=== PATIENT | female | born 1950 | race Caucasian/White ===

== ENCOUNTER 2016-11-23 16:55 | Emergency (ER) | payer SELFPAY ==
[~2016-11-23 16:55] MED LIST: BACTRIM DS TAB1 EACH PO; CLONIDINE 0.3M0.3 MG PO; COZAAR50 MG PO; JANUVIA50 MG PO; LASIX20 MG PO; NORCO 5-325 TA1 EACH PO; VANCOMYCIN1000 MG IV
== END 2016-11-23 19:22 | disposition home or self-care (01) ==
LOC: FER 16:55
DX: S09.90XA Unspecified injury of head, initial encounter (principal); S50.02XA Contusion of left elbow, initial encounter; S60.212A Contusion of left wrist, initial encounter; S00.31XA Abrasion of nose, initial encounter; I10 Essential (primary) hypertension; E11.9 Type 2 diabetes mellitus without complications; E03.9 Hypothyroidism, unspecified; F17.210 Nicotine dependence, cigarettes, uncomplicated; Z90.89 Acquired absence of other organs; Z85.42 Personal history of malignant neoplasm of other parts of uterus; Z88.5 Allergy status to narcotic agent; Z88.0 Allergy status to penicillin; Z91.013 Allergy to seafood; Z91.011 Allergy to milk products; Z79.899 Other long term (current) drug therapy; W01.0XXA Fall on same level from slipping, tripping and stumbling without subsequent striking against object, initial encounter; Y99.0 Civilian activity done for income or pay
CPT/HCPCS: 70450; 73080; 73110

== ENCOUNTER 2021-05-29 10:11 | Emergency (ER) | payer MEDICARE, OTHER ==
[~2021-05-29 10:11] MED LIST changes: +KEFLEX500 MG PO; +METFORMIN HCL500 MG PO; +VITAMIN B122500 MCG PO; +VITAMIN D31000 UNI1 PO
[2021-05-29 10:49] LABS: BASOPHIL 0.9 % (0-2); EOSINOPHIL 2.8 % (0-7); HCT 23.9 % (37.0-47.0); HGB 6.8 g/dl (12.5-16.0); LYMPHOCYTE 14.5 % (15-48); MCH 24.2 pg (25.0-31.0); MCHC 28.5 g/dL (32.0-36.0); MCV 85.1 fL (78.0-100.0); MONOCYTE 10.1 % (0-12); MPV 9.6 fL (6.0-9.5); NEUTROPHIL 71.4 % (41-80); NRBC 0; PLT 129 K/uL (150-400); RBC 2.81 M/uL (4.20-5.40); RDW 18.2 % (11.5-14.0); WBC 5.7 K/uL (4.0-10.5)
[2021-05-29 11:18] LABS: BILIRUBIN - TOTAL 0.8 mg/dL (0.2-1.0); BUN/CREAT RATIO (CALC) 17.4 RATIO; CREATININE 2.65 mg/dL (0.51-0.95); GLOBULIN (CALCULATION) 3.3 g/dL; POTASSIUM 6.3 mmol/L (3.5-5.1); TOTAL PROTEIN 6.3 g/dL (6.4-8.2)
[2021-05-29 12:13] LABS: INR 1.35 (0.9-1.2); PTT 36.7 SECONDS (24.4-34.7)
[2021-05-29 16:45] LABS: BASOPHIL 0.5 % (0-2); EOSINOPHIL 1.6 % (0-7); HCT 27.6 % (37.0-47.0); HGB 8.3 g/dl (12.5-16.0); MCH 25.5 pg (25.0-31.0); MCHC 30.1 g/dL (32.0-36.0); MCV 84.9 fL (78.0-100.0); MONOCYTE 9.4 % (0-12); MPV 9.3 fL (6.0-9.5); NEUTROPHIL 77.2 % (41-80); NRBC 0; PLT 113 K/uL (150-400); RBC 3.25 M/uL (4.20-5.40); RDW 17.7 % (11.5-14.0); WBC 6.1 K/uL (4.0-10.5)
[2021-05-29 17:00] LABS: BUN/CREAT RATIO (CALC) 16.2 RATIO; CREATININE 2.84 mg/dL (0.51-0.95); POTASSIUM 6.4 mmol/L (3.5-5.1)
[2021-05-29 17:58] LABS: BILIRUBIN NEGATIVE (NEGATIVE); BLOOD NEGATIVE Ery/uL (NEGATIVE); CLARITY CLEAR (CLEAR); COLOR YELLOW (YELLOW); GLUCOSE (U) NORMAL (NORMAL); LEUKOCYTES NEGATIVE Leu/uL (NEGATIVE); NITRITE NEGATIVE (NEGATIVE); PROTEIN TRACE (LOW) mg/dL (NEGATIVE); SPECIFIC GRAVITY >=1.030 (1.001-1.030); UROBILINOGEN 0.2 mg/dL (0.2-1.0); pH 5.5 (5.0-9.0)
[2021-05-29 21:38] LABS: BUN/CREAT RATIO (CALC) 16.7 RATIO; CREATININE 2.94 mg/dL (0.51-0.95); POTASSIUM 5.6 mmol/L (3.5-5.1)
[2021-05-30 04:58] LABS: HCT 31.9 % (37.0-47.0); HGB 9.7 g/dl (12.5-16.0); MCH 25.2 pg (25.0-31.0); MCHC 30.4 g/dL (32.0-36.0); MCV 82.9 fL (78.0-100.0); MPV 8.9 fL (6.0-9.5); RBC 3.85 M/uL (4.20-5.40); RDW 17.2 % (11.5-14.0); WBC 5.7 K/uL (4.0-10.5)
[2021-05-30 05:14] LABS: CREATININE 3.19 mg/dL (0.51-0.95); POTASSIUM 6.2 mmol/L (3.5-5.1)
== END 2021-05-30 10:19 | disposition other institution (70) ==
LOC: FER 10:11
PROVIDERS: Emergency Medicine
DX: J96.91 Respiratory failure, unspecified with hypoxia (principal); N19 Unspecified kidney failure; D64.9 Anemia, unspecified; J90 Pleural effusion, not elsewhere classified; K74.60 Unspecified cirrhosis of liver; R16.1 Splenomegaly, not elsewhere classified; I10 Essential (primary) hypertension; E11.9 Type 2 diabetes mellitus without complications; F17.210 Nicotine dependence, cigarettes, uncomplicated; Z88.0 Allergy status to penicillin; Z91.040 Latex allergy status; Z20.822 Contact with and (suspected) exposure to COVID-19
CPT/HCPCS: 36415; 36430; 36600; 71045; 71046; 80048; 80053; 81003; 82803; 83690; 83880; 84443; 84484; 85025; 85610; 85730; 86850; 86900; 86901; 86922; 93005; C9113; J0610; J1200; J1940; J2270; J2405; J2930; J7030; J7050; P9016; U0002

== ENCOUNTER 2021-07-08 10:01 | Inpatient (IN) | payer MEDICARE, OTHER ==
[2021-07-08 10:52] LABS: BASOPHIL 0.6 % (0-2); EOSINOPHIL 1.1 % (0-7); HCT 33.6 % (37.0-47.0); HGB 11.2 g/dl (12.5-16.0); LYMPHOCYTE 15.8 % (15-48); MCH 28.7 pg (25.0-31.0); MCHC 33.3 g/dL (32.0-36.0); MCV 86.2 fL (78.0-100.0); MONOCYTE 10.2 % (0-12); MPV 10.4 fL (6.0-9.5); NEUTROPHIL 71.9 % (41-80); NRBC 0; RDW 21.4 % (11.5-14.0); WBC 5.3 K/uL (4.0-10.5)
[2021-07-08 10:56] LABS: BILIRUBIN NEGATIVE (NEGATIVE); BLOOD NEGATIVE Ery/uL (NEGATIVE); CLARITY CLEAR (CLEAR); COLOR YELLOW (YELLOW); GLUCOSE (U) NORMAL (NORMAL); LEUKOCYTES NEGATIVE Leu/uL (NEGATIVE); NITRITE NEGATIVE (NEGATIVE); PROTEIN NEGATIVE (NEGATIVE); UROBILINOGEN 0.2 mg/dL (0.2-1.0); pH 6.5 (5.0-9.0)
[2021-07-08 11:02] LABS: ALBUMIN 3.7 g/dL (3.4-5.0); BILIRUBIN - TOTAL 1.2 mg/dL (0.2-1.0); BUN/CREAT RATIO (CALC) 22.6 RATIO; CREATININE 2.35 mg/dL (0.51-0.95); TOTAL PROTEIN 7.7 g/dL (6.4-8.2)
[2021-07-08 11:08] LABS: LACTIC ACID 2.1 mmol/L (0.4-1.9)
[2021-07-08 11:25] LABS: PLT 97 K/uL (150-400)
[2021-07-08] MEDS ORDERED: HUMALOG100 UNIT/1 SC (20:10)
[2021-07-08] MEDS ORDERED: LEVEMIR VI100 UNITS/ SC (20:11)
[2021-07-08] MEDS ORDERED: LASIX40 MG PO (20:11)
[2021-07-08] MEDS ORDERED: LEVAQUIN500 MG PO (20:12)
[2021-07-08] MEDS ORDERED: COZAAR50 MG PO (20:13)
[2021-07-08] MEDS ORDERED: MELATONIN5 M2 PO (20:14)
[2021-07-08] MEDS ORDERED: MIRALAX17 GM PO (20:16)
[2021-07-08] MEDS ORDERED: NORVASC5 MG PO (20:17)
[2021-07-08] MEDS ORDERED: PRILOSEC20 MG PO (20:18)
[2021-07-08] MEDS ORDERED: MYCOLOG15 GM TOP (20:18)
[2021-07-08] MEDS ORDERED: KLOR-CON M2020 MEQ PO (20:20)
[2021-07-08] MEDS ORDERED: KLOR-CON M 1010 MEQ PO (20:22)
[2021-07-08] MEDS ORDERED: ALDACTONE50 MG PO (20:22)
[2021-07-08] MEDS ORDERED: FLOMAX0.4 MG PO (20:23)
[2021-07-08] MEDS ORDERED: TRAMADOL HCL50 MG PO (20:24)
[2021-07-08] MEDS ORDERED: VITAMIN B-121000 MC1 SL (20:24)
[2021-07-08] MEDS ORDERED: BIOFREEZE89 ML TOP (20:25)
[2021-07-08] MEDS ORDERED: CLONIDINE 0.3M0.3 MG PO (20:27)
[2021-07-08] MEDS ORDERED: CALMOSEPTINE O3.5 GM TOP (20:27)
[2021-07-08] MEDS ORDERED: COLACE100 MG PO (20:28)
[2021-07-08] MEDS ORDERED: VITAMIN B-121000 MC1 PO (20:28)
[2021-07-08] MEDS ORDERED: FLORASTOR250 MG PO (20:29)
[2021-07-08] MEDS ORDERED: FEOSOL325 MG PO (20:29)
[2021-07-09 08:54] LABS: BASOPHIL 0.6 % (0-2); EOSINOPHIL 0.6 % (0-7); HCT 37.4 % (37.0-47.0); LYMPHOCYTE 13.7 % (15-48); MCH 28.8 pg (25.0-31.0); MCHC 32.1 g/dL (32.0-36.0); MCV 89.7 fL (78.0-100.0); MONOCYTE 6.9 % (0-12); MPV 9.8 fL (6.0-9.5); NEUTROPHIL 77.7 % (41-80); NRBC 0; PLT 99 K/uL (150-400); RBC 4.17 M/uL (4.20-5.40); RDW 21.5 % (11.5-14.0); WBC 6.6 K/uL (4.0-10.5)
[2021-07-09 09:07] LABS: INR 1.39 (0.9-1.2); PROTHROMBIN TIME 16.4 SECONDS (11.8-13.4)
[2021-07-09 10:21] LABS: IRON % SATURATION 25.1 %SAT (20-50)
[2021-07-09 11:27] LABS: ALBUMIN 3.6 g/dL (3.4-5.0); BILIRUBIN - TOTAL 1.1 mg/dL (0.2-1.0); BUN/CREAT RATIO (CALC) 22.7 RATIO; CREATININE 2.33 mg/dL (0.51-0.95); GLOBULIN (CALCULATION) 4.6 g/dL; POTASSIUM 4.7 mmol/L (3.5-5.1); TOTAL PROTEIN 8.2 g/dL (6.4-8.2)
[2021-07-10 04:10] LABS: BASOPHIL 0.4 % (0-2); EOSINOPHIL 1.8 % (0-7); HCT 30.5 % (37.0-47.0); HGB 9.9 g/dl (12.5-16.0); MCH 28.5 pg (25.0-31.0); MCHC 32.5 g/dL (32.0-36.0); MCV 87.9 fL (78.0-100.0); MONOCYTE 11.8 % (0-12); MPV 9.4 fL (6.0-9.5); NEUTROPHIL 64.6 % (41-80); NRBC 0; RBC 3.47 M/uL (4.20-5.40); RDW 20.8 % (11.5-14.0); WBC 2.7 K/uL (4.0-10.5)
[2021-07-10 04:24] LABS: BUN/CREAT RATIO (CALC) 22.8 RATIO; CREATININE 1.62 mg/dL (0.51-0.95); POTASSIUM 3.8 mmol/L (3.5-5.1)
[2021-07-10 04:49] LABS: PLT 73 K/uL (150-400)
--- NOTE | 2021-07-10 14:50 | NUR ---
PER [facility] WITH [facility], PT MAY RETURN TO THEIR FACILITY. PLEASE CONTACT [facility] AAT [phone] FOR REPORT AND FAX D/C SUMMARY TO [phone].
[2021-07-11 05:41] LABS: BASOPHIL 0.2 % (0-2); EOSINOPHIL 0.4 % (0-7); HCT 28.2 % (37.0-47.0); HGB 9.3 g/dl (12.5-16.0); LYMPHOCYTE 11.3 % (15-48); MCH 28.7 pg (25.0-31.0); MONOCYTE 7.6 % (0-12); MPV 9.9 fL (6.0-9.5); NEUTROPHIL 80.1 % (41-80); NRBC 0; RBC 3.24 M/uL (4.20-5.40); WBC 4.6 K/uL (4.0-10.5)
[2021-07-11 06:00] LABS: PLT 74 K/uL (150-400)
[2021-07-11 06:26] LABS: BUN/CREAT RATIO (CALC) 21.8 RATIO; CREATININE 1.1 mg/dL (0.51-0.95); POTASSIUM 3.9 mmol/L (3.5-5.1)
[2021-07-11] MEDS ORDERED: LACTULOSE10 G/15 ML PO (08:14)
[2021-07-11] MEDS ORDERED: SODIUM BICARBO650 M1 PO (08:14)
[2021-07-11 15:11] LABS: CALCIUM, SERUM 9.8 mg/dL (8.7-10.3); PTH, INTACT 42 pg/mL (15-65)
== END 2021-07-11 10:33 | DRG 441 ==
LOC: FER 10:01 → FMS 12:30
PROVIDERS: Emergency Medicine; ADMIT Family Medicine
DX: K72.90 Hepatic failure, unspecified without coma (principal); G93.41 Metabolic encephalopathy; N17.9 Acute kidney failure, unspecified; N39.0 Urinary tract infection, site not specified; D61.818 Other pancytopenia; I10 Essential (primary) hypertension; Z20.822 Contact with and (suspected) exposure to COVID-19; E11.9 Type 2 diabetes mellitus without complications; E86.0 Dehydration; E83.52 Hypercalcemia; R79.89 Other specified abnormal findings of blood chemistry; K74.60 Unspecified cirrhosis of liver; D64.9 Anemia, unspecified; M10.9 Gout, unspecified; E03.9 Hypothyroidism, unspecified; Z88.0 Allergy status to penicillin; Z91.011 Allergy to milk products; Z88.6 Allergy status to analgesic agent; Z91.040 Latex allergy status; Z88.8 Allergy status to other drugs, medicaments and biological substances; Z88.5 Allergy status to narcotic agent; Z85.42 Personal history of malignant neoplasm of other parts of uterus; Z79.899 Other long term (current) drug therapy; Z90.710 Acquired absence of both cervix and uterus; Z79.84 Long term (current) use of oral hypoglycemic drugs
CPT/HCPCS: 36415; 36600; 70450; 70551; 71045; 80048; 80053; 81003; 82140; 82310; 82607; 82803; 83036; 83540; 83550; 83605; 83970; 84145; 84443; 85025; 85610; 87040; 87088; 87449; 94010; 97162; 97166; 97530-GP; 97535; G0378; J0696; J1642; J2405; J7030; U0002

== ENCOUNTER 2021-07-21 10:29 | Emergency (ER) | payer MEDICARE, OTHER ==
[~2021-07-21 10:29] MED LIST changes: +ALDACTONE50 MG PO; +BIOFREEZE89 ML TOP; +CALMOSEPTINE O3.5 GM TOP; +COLACE100 MG PO; +FEOSOL325 MG PO; +FLOMAX0.4 MG PO; +FLORASTOR250 MG PO; +HUMALOG100 UNIT/1 SC; +KLOR-CON M 1010 MEQ PO; +KLOR-CON M2020 MEQ PO; +LACTULOSE10 G/15 ML PO; +LASIX40 MG PO; +LEVAQUIN500 MG PO; +LEVEMIR VI100 UNITS/ SC; +MELATONIN5 M2 PO; +MIRALAX17 GM PO; +MYCOLOG15 GM TOP; +NORVASC5 MG PO; +PRILOSEC20 MG PO; +SODIUM BICARBO650 M1 PO; +TRAMADOL HCL50 MG PO; +VITAMIN B-121000 MC1 PO; +VITAMIN B-121000 MC1 SL
[2021-07-21 11:14] LABS: BASOPHIL 0.2 % (0-2); EOSINOPHIL 0.6 % (0-7); HCT 25.4 % (37.0-47.0); HGB 8.6 g/dl (12.5-16.0); LYMPHOCYTE 6.4 % (15-48); MCH 30.3 pg (25.0-31.0); MCHC 33.9 g/dL (32.0-36.0); MCV 89.4 fL (78.0-100.0); MPV 10.1 fL (6.0-9.5); NEUTROPHIL 85.2 % (41-80); NRBC 0; PLT 79 K/uL (150-400); RBC 2.84 M/uL (4.20-5.40); RDW 18.6 % (11.5-14.0); WBC 4.9 K/uL (4.0-10.5)
[2021-07-21 11:23] LABS: BUN/CREAT RATIO (CALC) 28.5 RATIO; CREATININE 1.23 mg/dL (0.51-0.95); POTASSIUM 5.6 mmol/L (3.5-5.1)
[2021-07-21 11:28] LABS: BILIRUBIN NEGATIVE (NEGATIVE); BLOOD NEGATIVE Ery/uL (NEGATIVE); CLARITY CLEAR (CLEAR); COLOR YELLOW (YELLOW); GLUCOSE (U) NORMAL (NORMAL); LEUKOCYTES NEGATIVE Leu/uL (NEGATIVE); NITRITE NEGATIVE (NEGATIVE); PROTEIN NEGATIVE (NEGATIVE); SPECIFIC GRAVITY <=1.005 (1.001-1.030)
[2021-07-21 14:46] LABS: ALBUMIN 3.3 g/dL (3.4-5.0); BILIRUBIN - DIRECT 0.1 mg/dL (0.00-0.20); BILIRUBIN - TOTAL 0.6 mg/dL (0.2-1.0); GLOBULIN (CALCULATION) 3.7 g/dL
== END 2021-07-21 18:15 | disposition home or self-care (01) ==
LOC: FER 10:29
PROVIDERS: Emergency Medicine
DX: I95.89 Other hypotension (principal); F03.90 Unspecified dementia, unspecified severity, without behavioral disturbance, psychotic disturbance, mood disturbance, and anxiety; Z88.0 Allergy status to penicillin; Z88.8 Allergy status to other drugs, medicaments and biological substances; Z28.310 Unvaccinated for COVID-19
CPT/HCPCS: 36415; 80048; 80076; 81003; 82140; 82530; 85025; J1720; J7030

== ENCOUNTER 2021-10-31 14:16 | Emergency (ER) | payer MEDICARE, OTHER ==
[~2021-10-31 14:16] MED LIST changes: +ACETAMINOPHEN325 MG PO; +BUSPAR5 MG PO; +CLONIDINE HCL0.1 M1 PO; +INSULIN LI100 UNIT/4 SC; +INVANZ 1GM1 GM/VIAL IV; +LACTULOSE20 GM/30 M PO; +LANTUS **100 UNITS/ SC; +LAXATIVE SUPPOS10 MG PR; +ONDANSETRON HCL4 MG PO; +TRAMADOL HCL E100 MG PO; +VENELEX OINTM56.7 GM TOP
[2021-10-31 15:27] LABS: BASOPHIL 0.4 % (0-2); EOSINOPHIL 1.9 % (0-7); HCT 22.2 % (37.0-47.0); HGB 6.7 g/dl (12.5-16.0); LYMPHOCYTE 6.7 % (15-48); MCH 28.2 pg (25.0-31.0); MCHC 30.2 g/dL (32.0-36.0); MCV 93.3 fL (78.0-100.0); MONOCYTE 2.1 % (0-12); MPV 10.5 fL (6.0-9.5); NEUTROPHIL 88.5 % (41-80); NRBC 0; PLT 103 K/uL (150-400); RBC 2.38 M/uL (4.20-5.40); RDW 13.6 % (11.5-14.0); WBC 5.7 K/uL (4.0-10.5)
[2021-10-31 15:46] LABS: ALBUMIN 2.4 g/dL (3.4-5.0); BILIRUBIN - TOTAL 0.7 mg/dL (0.2-1.0); BUN/CREAT RATIO (CALC) 14.8 RATIO; CREATININE 1.08 mg/dL (0.51-0.95); POTASSIUM 5.2 mmol/L (3.5-5.1); TOTAL PROTEIN 6.4 g/dL (6.4-8.2)
[2021-10-31 17:06] LABS: CORONAVIRUS 2019 SARS-COV-2 NEGATIVE (NEGATIVE); INFLUENZA A NAA NEGATIVE (NEGATIVE)
[2021-10-31 19:24] LABS: BILIRUBIN NEGATIVE (NEGATIVE); BLOOD NEGATIVE Ery/uL (NEGATIVE); CLARITY CLEAR (CLEAR); COLOR YELLOW (YELLOW); GLUCOSE (U) NORMAL (NORMAL); LEUKOCYTES NEGATIVE Leu/uL (NEGATIVE); NITRITE NEGATIVE (NEGATIVE); PROTEIN NEGATIVE (NEGATIVE); SPECIFIC GRAVITY 1.025 (1.001-1.030); UROBILINOGEN 0.2 mg/dL (0.2-1.0); pH 5.5 (5.0-9.0)
[2021-10-31 19:52] LABS: INR 1.24 (0.9-1.2); PROTHROMBIN TIME 15.2 SECONDS (11.9-13.9); PTT 35.4 SECONDS (24.9-34.6)
== END 2021-11-01 00:35 | disposition other institution (70) ==
LOC: FER 14:16
PROVIDERS: Emergency Medicine
DX: K92.2 Gastrointestinal hemorrhage, unspecified (principal); K21.9 Gastro-esophageal reflux disease without esophagitis; R19.5 Other fecal abnormalities; E11.9 Type 2 diabetes mellitus without complications; I10 Essential (primary) hypertension; F17.210 Nicotine dependence, cigarettes, uncomplicated; Z88.0 Allergy status to penicillin; Z88.8 Allergy status to other drugs, medicaments and biological substances; Z91.013 Allergy to seafood; Z91.011 Allergy to milk products; Z20.822 Contact with and (suspected) exposure to COVID-19; Z28.310 Unvaccinated for COVID-19
CPT/HCPCS: 36415; 36430; 36600; 70450; 71045; 71275; 80053; 81003; 82140; 82803; 83605; 83880; 84145; 84484; 85025; 85379; 85610; 85730; 86850; 86900; 86901; 86922; 87040; 93005; 94640; 94664; 94760; 94762; C9113; J0692; J1200; J2930; J7030; J7050; P9016; Q9967; U0002